=== PATIENT | female | born 1995 | race Caucasian/White ===

== ENCOUNTER 2016-07-12 20:26 | Emergency (ER) | payer BC ==
[2016-07-12] MEDS ORDERED: EPINEPHrine HCL AMP 1 MG/ML AMP IM ONE (21:39)
[2016-07-12] MEDS ORDERED: predniSONE 10 MG TAB PO ONE (21:40)
[2016-07-12 21:49] VITALS: BP 112/77; TEMP 98.9
--- NOTE | 2016-07-12 23:06 | ED.PDOC ---
History of Present Illness - General Chief Complaint: Allergic Reaction Stated Complaint: ALLERGIC REACTIONS TO TREE NUTS, ABLE TO BREATH Time Seen by Provider: 07/12/16 23:00 Source: patient, RN notes reviewed, Vital Signs reviewed Exam Limitations: no limitations - History of Present Illness Initial Comments: she stated that ate 3-nuts:pecan,cashew ,almond coated with chocolate then an hour later felt itchy,back of her throat also got itchy no sob no n/v.Took 3 benadryls otc and 2 zyrtec did not get better decided to come to er. Timing/Duration: 1-3 hours Severity: moderate Improving Factors: nothing Worsening Factors: other - his tory of allergies to peanuts,walnuts cashew pecan Associated Symptoms: denies symptoms Allergies/Adverse Reactions: Allergies Penicillins Allergy (Verified 07/12/16 21:33) Sulfa Antibiotics Allergy (Verified 07/12/16 21:33) Home Medications: Ambulatory Orders Naproxen 375 mg PO BID #10 tab 08/10/15 raNITIdine HCL [Zantac] 150 mg PO BID #10 tab 08/10/15 Mometasone Furoate (Nasal) [Nasonex] 50 mcg NA BID #1 ml 07/12/16 Oxymetazoline HCl [Afrin Nasal [place]] 1 spray NA BID #1 spr 07/12/16 predniSONE [Prednisone] 10 mg PO BID #10 tab 07/12/16 Review of Systems - Review of Systems Constitutional: States: no symptoms reported, other - itching EENTM: States: nose congestion Respiratory: States: no symptoms reported Cardiology: States: no symptoms reported Gastrointestinal/Abdominal: States: no symptoms reported Genitourinary: States: no symptoms reported Musculoskeletal: States: no symptoms reported Skin: States: no symptoms reported Neurological: States: no symptoms reported Endocrine: States: no symptoms reported Past Medical History (General) - Patient Medical History Hx Asthma: Yes Hx Other PMH: Yes - allergic rhinitis Surgical History: no surgical history - Vaccination History Hx Tetanus, Diphtheria Vaccination: Yes Hx Influenza Vaccination: Yes - Social History Hx Tobacco Use: No Hx Alcohol Use: No - Female History Patient is a Female of Child Bearing Age (10 -59 yrs old): Yes Hx Last Menstrual Period: 07/11/16 Patient : No Family Medical History - Family History Mother Family History: No Known Living Status: Still Living Hx Family Asthma: Yes Hx Family Hypertension: Yes Hx Family;Other: ECZEMA Physical Exam - Physical Exam General Appearance: Alert, No apparent distress Ears, Nose, Throat: hearing grossly normal, normal ENT inspection, normal pharynx, nasal congestion Neck: non-tender, supple Respiratory: lungs clear, normal breath sounds, no respiratory distress Cardiovascular/Chest: normal peripheral pulses, regular rate, rhythm, no edema, no gallop, no murmur Gastrointestinal/Abdominal: normal bowel sounds, non tender, soft Back Exam: no CVA tenderness, no vertebral tenderness Extremity: normal range of motion, non-tender, no calf tenderness Neurologic: alert, normal mood/affect, oriented x 3 Skin Exam: normal color, warm/dry Lymphatic: no adenopathy Progress - Results/Orders Results/Orders: still itching but no sob,no nausea Departure - Departure Clinical Impression: Allergic reaction to food Qualifiers: Encounter type: initial encounter Qualifier Code: (T78.1XXA) Other adverse food reactions, not elsewhere classified, initial encounter Time of Disposition: 23:30 Disposition: Discharge to Home or Self Care Condition: Fair Departure Forms: ED Discharge - Pt. Copy, Patient Portal Self Enrollment Prescriptions: Oxymetazoline HCl [Afrin Nasal [place]] 1 spray NA BID #1 spr Mometasone Furoate (Nasal) [Nasonex] 50 mcg NA BID #1 ml predniSONE [Prednisone] 10 mg PO BID #10 tab Home Medications: Ambulatory Orders Naproxen 375 mg PO BID #10 tab 08/10/15 raNITIdine HCL [Zantac] 150 mg PO BID #10 tab 08/10/15 Mometasone Furoate (Nasal) [Nasonex] 50 mcg NA BID #1 ml 07/12/16 Oxymetazoline HCl [Afrin Nasal [place]] 1 spray NA BID #1 spr 07/12/16 predniSONE [Prednisone] 10 mg PO BID #10 tab 07/12/16
[2016-07-12] MEDS ORDERED: DEXAMETHASONE INJ 4 MG/ML VIAL IM ONE (23:15)
[2016-07-13 00:18] VITALS: O2SAT 98
== END 2016-07-12 23:55 | disposition home or self-care (01) ==
LOC: ER 20:26
DX: T78.05XA Anaphylactic reaction due to tree nuts and seeds, initial encounter (principal); Z91.010 Allergy to peanuts; Z91.018 Allergy to other foods; Z88.0 Allergy status to penicillin; Z88.2 Allergy status to sulfonamides